=== PATIENT | female | born 1975 | race Hispanic/Latino ===

== ENCOUNTER 2017-10-01 21:51 | Inpatient (IN) | payer BC ==
[2017-10-01 21:52] VITALS: BMI 21.4
[2017-10-01] MEDS ORDERED: Sodium Chloride 0.9% 1,000 ML IV STA (22:21)
--- NOTE | 2017-10-01 22:34 | ED PDOC ---
HPI: Psych/Substance Abuse Time Seen by Provider: 10/01/17 22:01 Chief Complaint (Nursing): Substance Abuse Chief Complaint (Provider): Substance Abuse History Per: Patient, EMS Onset/Duration Of Symptoms: Mins Current Symptoms Are (Timing): Still Present Additional Complaint(s): 41 year old female, with a past medical history of depression and PTSD presents to the ED via EMS after taking 40 800mg tablets of Seroquel and 0.5mg of Xanax at 21:00 today in suicide attempt. Patient is on lithium but denies ingesting lithium today. PMD: none Past Medical History Reviewed: Historical Data, Nursing Documentation, Vital Signs Vital Signs: Last Vital Signs Temp 97.6 F 10/01/17 21:57 Pulse 123 H 10/01/17 22:09 Resp 17 10/01/17 22:09 BP 124/74 10/01/17 22:09 Pulse Ox 100 10/01/17 22:09 - Medical History PMH: Anxiety (OCD), Depression, Hypothyroidism, Post Traumatic Stress Disorder - Surgical History Other surgeries: tubal ligation - Family History Family History: States: Unknown Family Hx - Social History Current smoker - smoking cessation education provided: No Alcohol: None Drugs: Denies - Immunization History Hx Tetanus Toxoid Vaccination: No (not sure of last tetanus) - Home Medications Home Medications: Ambulatory Orders Medication Instructions Recorded Alprazolam [Xanax] 0.5 mg PO HS 10/02/17 Acetaminophen [Tylenol 325mg tab] 650 mg PO Q6 PRN tab 10/04/17 DiphenhydrAMINE [Benadryl] 50 mg IM Q8 PRN vial 10/04/17 DiphenhydrAMINE [Benadryl] 50 mg PO Q8 PRN cap 10/04/17 Famotidine [Pepcid] 20 mg PO BID tab 10/04/17 Haloperidol Lactate [Haldol] 2 mg IM Q8 PRN vial 10/04/17 Haloperidol [Haldol] 2 mg PO Q8 PRN tab 10/04/17 LORazepam [Ativan] 1 mg PO Q8 PRN tab 10/04/17 LORazepam [Ativan] 2 mg IM Q8 PRN vial 10/04/17 - Allergies Allergies/Adverse Reactions: Allergies Allergy/AdvReac Type Severity Reaction Status Date / Time No Known Allergies Allergy Verified 11/16/14 12:55 Review of Systems ROS Statement: Except As Marked, All Systems Reviewed And Found Negative Psych: Positive for: Suicidal ideation (suicidal attempt) Physical Exam - Reviewed Nursing Documentation Reviewed: Yes Vital Signs Reviewed: Yes - Physical Exam Appears: Positive for: Non-toxic, No Acute Distress (sleep and responsive to verbal stimuli) Head Exam: Positive for: ATRAUMATIC, NORMOCEPHALIC Skin: Positive for: Normal Color, Warm, Dry Eye Exam: Positive for: Other (constricted but not pinpoint) Neck: Positive for: Normal, Painless ROM Cardiovascular/Chest: Positive for: Regular Rate, Rhythm, Tachycardia Respiratory: Positive for: Normal Breath Sounds. Negative for: Wheezing, Respiratory Distress Gastrointestinal/Abdominal: Positive for: Normal Exam, Soft. Negative for: Tenderness Extremity: Positive for: Normal ROM - Laboratory Results Result Diagrams: 10/03/17 05:25 10/03/17 05:25 - ECG Interpretation Of ECG: ST @ 126, nonspecific ST and T abnormality. O2 Sat by Pulse Oximetry: 100 (RA) Pulse Ox Interpretation: Normal - Critical Care Total Time (In Min): 45 Medical Decision Making Medical Decision Making: Initial Impression: OD, suicide attempt Initial Plan: --ECG --Acetaminophen stat --Alcohol serum stat --Beta HCG --CMP --Drug screen --[place] stat --Magnesium stat --Salicylate stat --ED urine --ED urine dipstick --CBC --Chest X-ray --Glucose --Sodium chloride 1000mL IV --1:1 observation --Urinalysis 00:20 Called Poison Control back, spoke with ED. Recommends KDur for slightly low K, keep Mg>2 other replenish, repeat EKG in another 2 hours, repeat [place] 4-6 hours from first level, supportive care. Will call back later tonight. Scribe Attestation: Documented by Pierce Abdi acting as a scribe for Negra Parks MD. Provider Scribe Attestation: All medical record entries made by the Scribe were at my direction and personally dictated by me. I have reviewed the chart and agree that the record accurately reflects my personal performance of the history, physical exam, medical decision making, and the department course for this patient. I have also personally directed, reviewed, and agree with the discharge instructions and disposition. Disposition - Clinical Impression Clinical Impression: Antipsychotic overdose, Depression, PTSD (post-traumatic stress disorder) - Patient ED Disposition Is Patient to be Admitted: Yes - Disposition Disposition Time: 23:35 Condition: STABLE - Pt Status Changed To: Hospital Disposition Of: Inpatient - Admit Certification Admit to Inpatient:: After my assessment, the patient will require hospitalization for at least two midnights. This is because of the severity of symptoms shown, intensity of services needed, and/or the medical risk in this patient being treated as an outpatient. - POA Present On Arrival: None
[2017-10-01 22:47] LABS: BASO % 0.5 % (0.0-2.0); EOS # 0.4 K/uL (0.0-0.7); EOS % 4.3 % (0.0-4.0); LYMPH # 2.2 K/uL (1.0-4.3); LYMPH % 26.7 % (20.0-40.0); MEAN CELL VOLUME 96.2 fl (81.0-99.0); MEAN CORPUSCULAR HEMOGLOBIN 32.7 pg (27.0-31.0); MEAN PLATELET VOLUME 7.7 fl (7.2-11.7); MONO # 0.6 K/uL (0.0-0.8); MONO % 6.7 % (0.0-10.0); NEUT # 5.1 K/uL (1.8-7.0); NEUT % 61.8 % (50.0-75.0); RBC 3.97 Mil/uL (3.80-5.20); RED CELL DISTRIBUTION WIDTH 12.5 % (11.5-14.5); WHITE BLOOD COUNT 8.3 K/uL (4.8-10.8)
[2017-10-01 23:12] LABS: ALB/GLOB RATIO 1.3 (1.0-2.1); ALBUMIN 4.5 g/dL (3.5-5.0); ALT/SGPT 18 U/L (9-52); AST/SGOT 23 U/L (14-36); BLOOD UREA NITROGEN 13 mg/dl (7-17); CALCIUM 9.8 mg/dL (8.4-10.2); GFR AFRICAN-AMERICAN > 60; GFR NON-AFRICAN AMERICAN > 60
[2017-10-02] MEDS: Sodium Chloride 0.9% 1,000 ML IV SCH ×3 (00:11→20:36)
[2017-10-02 00:13] LABS: ACETAMINOPHEN < 10.0 ug/ml (10.0-30.0); SALICYLATE < 1.0 mg/dl
[2017-10-02] MEDS ORDERED: Sodium Chloride 0.9% 1,000 ML IV STA (00:15)
[2017-10-02 06:04] LABS: BASO % 0.6 % (0.0-2.0); EOS # 0.3 K/uL (0.0-0.7); EOS % 4.5 % (0.0-4.0); HEMOGLOBIN 10.7 g/dL (12.0-16.0); LYMPH # 2.1 K/uL (1.0-4.3); LYMPH % 29.6 % (20.0-40.0); MEAN CELL VOLUME 96.6 fl (81.0-99.0); MEAN CORPUSCULAR HGB CONC 34.1 g/dL (33.0-37.0); MEAN PLATELET VOLUME 7.9 fl (7.2-11.7); MONO # 0.5 K/uL (0.0-0.8); MONO % 7.5 % (0.0-10.0); NEUT # 4.1 K/uL (1.8-7.0); NEUT % 57.8 % (50.0-75.0); RBC 3.24 Mil/uL (3.80-5.20); RED CELL DISTRIBUTION WIDTH 12.4 % (11.5-14.5); WHITE BLOOD COUNT 7.1 K/uL (4.8-10.8)
[2017-10-02 07:10] LABS: ALB/GLOB RATIO 1.1 (1.0-2.1); ALBUMIN 3.2 g/dL (3.5-5.0); ALT/SGPT 15 U/L (9-52); AST/SGOT 19 U/L (14-36); BLOOD UREA NITROGEN 10 mg/dl (7-17); CALCIUM 8.4 mg/dL (8.4-10.2); GFR AFRICAN-AMERICAN > 60; GFR NON-AFRICAN AMERICAN > 60
--- NOTE | 2017-10-02 07:45 | CP.PCM.HP ---
History of Present Illness - History of Present Illness History of Present Illness: pt admitted for seroquel od, not willing to talk at this time responsive to stimuli at this time but unwilling to speak no fcnvd ekg and bw noted pending psych consult 1:1 at bedside Present on Admission - Present on Admission Any Indicators Present on Admission: No Review of Systems - Psychiatric Psychiatric: As Per HPI, Suicidal Ideation Past Patient History - Past Medical History & Family History Past Medical History?: Yes - Past Social History Smoking Status: Never Smoked - CARDIAC Hx Cardiac Disorders: No - PULMONARY Hx Respiratory Disorders: No - NEUROLOGICAL Hx Neurological Disorder: No - HEENT Hx HEENT Problems: No - RENAL Hx Chronic Kidney Disease: No - ENDOCRINE/METABOLIC Hx Endocrine Disorders: Yes Hx Hypothyroidism: Yes - HEMATOLOGICAL/ONCOLOGICAL Hx Blood Disorders: No - INTEGUMENTARY Hx Dermatological Problems: No - MUSCULOSKELETAL/RHEUMATOLOGICAL Hx Musculoskeletal Disorders: No Hx Falls: No - GASTROINTESTINAL Hx Gastrointestinal Disorders: No - GENITOURINARY/GYNECOLOGICAL Hx Genitourinary Disorders: No - PSYCHIATRIC Hx Psychophysiologic Disorder: Yes Hx Anxiety: Yes Hx Depression: Yes Hx Post Traumatic Stress Disorder: Yes Hx Substance Use: No Other/Comment: OCD, Suicide attempt 8 yrs ago - SURGICAL HISTORY Hx Surgeries: Yes Hx Hysterectomy: Yes Hx Tubal Ligation: Yes - ANESTHESIA Hx Anesthesia: Yes Hx Anesthesia Reactions: No Hx Malignant Hyperthermia: No Meds Allergies/Adverse Reactions: Allergies Allergy/AdvReac Type Severity Reaction Status Date / Time No Known Allergies Allergy Verified 11/16/14 12:55 Physical Exam - Constitutional Appears: Well, Non-toxic, No Acute Distress - Head Exam Head Exam: ATRAUMATIC, NORMAL INSPECTION, NORMOCEPHALIC - Eye Exam Eye Exam: EOMI, Normal appearance, PERRL Pupil Exam: NORMAL ACCOMODATION, PERRL - ENT Exam ENT Exam: Mucous Membranes Moist, Normal Exam - Neck Exam Neck exam: Positive for: Normal Inspection - Respiratory Exam Respiratory Exam: Clear to Auscultation Bilateral, NORMAL BREATHING PATTERN - Cardiovascular Exam Cardiovascular Exam: REGULAR RHYTHM, RRR, +S1, +S2 - GI/Abdominal Exam GI & Abdominal Exam: Normal Bowel Sounds, Soft. absent: Tenderness - Extremities Exam Extremities exam: Positive for: full ROM, normal capillary refill, normal inspection, pedal pulses present - Back Exam Back exam: NORMAL INSPECTION - Neurological Exam Neurological exam: Alert, CN II-XII Intact, Normal Gait, Oriented x3, Reflexes Normal - Psychiatric Exam Psychiatric exam: Normal Affect, Normal Mood - Skin Skin Exam: Dry, Intact, Normal Color, Warm Results - Vital Signs Recent Vital Signs: Last Vital Signs Temp 97.5 F L 10/02/17 06:29 Pulse 125 H 10/02/17 06:29 Resp 18 10/02/17 06:29 BP 110/72 10/02/17 06:29 Pulse Ox 99 10/02/17 06:29 - Labs Result Diagrams: 10/02/17 05:45 10/02/17 05:45 Labs: Laboratory Results - last 24 hr 10/01/17 10/01/17 10/01/17 22:35 22:38 22:38 WBC RBC Hgb Hct MCV MCH MCHC RDW Plt Count MPV Neut % (Auto) Lymph % (Auto) [place] % (Auto) Eos % (Auto) Baso % (Auto) Neut # (Auto) Lymph # (Auto) [place] # (Auto) Eos # (Auto) Baso # (Auto) Sodium 141 Potassium 3.5 L Chloride 107 Carbon Dioxide 23 Anion Gap 15 BUN 13 Creatinine 0.9 Est GFR ( Amer) > 60 Est GFR (Non-Af Amer) > 60 POC Glucose (mg/dL) 117 H Random Glucose 125 H Calcium 9.8 Magnesium Total Bilirubin 0.3 AST 23 ALT 18 Alkaline Phosphatase 102 Total Protein 7.9 Albumin 4.5 Globulin 3.5 Albumin/Globulin Ratio 1.3 Beta HCG, Quant Salicylates < 1.0 Acetaminophen < 10.0 L [place] 0.5 L Alcohol, Quantitative < 10 10/01/17 10/01/17 10/02/17 22:38 22:38 02:45 WBC 8.3 RBC 3.97 Hgb 13.0 Hct 38.2 MCV 96.2 MCH 32.7 H MCHC 34.0 RDW 12.5 Plt Count 291 MPV 7.7 Neut % (Auto) 61.8 Lymph % (Auto) 26.7 [place] % (Auto) 6.7 Eos % (Auto) 4.3 H Baso % (Auto) 0.5 Neut # (Auto) 5.1 Lymph # (Auto) 2.2 [place] # (Auto) 0.6 Eos # (Auto) 0.4 Baso # (Auto) 0.0 Sodium Potassium Chloride Carbon Dioxide Anion Gap BUN Creatinine Est GFR ( Amer) Est GFR (Non-Af Amer) POC Glucose (mg/dL) Random Glucose Calcium Magnesium 2.4 H Total Bilirubin AST ALT Alkaline Phosphatase Total Protein Albumin Globulin Albumin/Globulin Ratio Beta HCG, Quant < 2.39 Salicylates Acetaminophen [place] 0.4 L Alcohol, Quantitative 10/02/17 10/02/17 05:45 05:45 WBC 7.1 RBC 3.24 L Hgb 10.7 L D Hct 31.3 L MCV 96.6 MCH 33.0 H MCHC 34.1 RDW 12.4 Plt Count 249 MPV 7.9 Neut % (Auto) 57.8 Lymph % (Auto) 29.6 [place] % (Auto) 7.5 Eos % (Auto) 4.5 H Baso % (Auto) 0.6 Neut # (Auto) 4.1 Lymph # (Auto) 2.1 [place] # (Auto) 0.5 Eos # (Auto) 0.3 Baso # (Auto) 0.0 Sodium 145 Potassium 3.7 Chloride 114 H Carbon Dioxide 21 L Anion Gap 14 BUN 10 Creatinine 0.8 Est GFR ( Amer) > 60 Est GFR (Non-Af Amer) > 60 POC Glucose (mg/dL) Random Glucose 96 Calcium 8.4 Magnesium 2.1 Total Bilirubin 0.4 AST 19 ALT 15 Alkaline Phosphatase 72 Total Protein 6.1 L Albumin 3.2 L D Globulin 2.9 Albumin/Globulin Ratio 1.1 Beta HCG, Quant Salicylates Acetaminophen [place] Alcohol, Quantitative Assessment & Plan (1) DVT prophylaxis Assessment and Plan: scd and ae hose Status: Acute (2) Antipsychotic overdose Assessment and Plan: 1:1 psych monitor ekg poison control involved in case bw noted. Status: Acute (3) Depression Assessment and Plan: 1:1 psych monitor ekg poison control involved in case bw noted. Status: Acute Decision To Admit - Pt Status Changed To: Hospital Disposition Of: Inpatient - Admit Certification Admit to Inpatient:: After my assessment, the patient will require hospitalization for at least two midnights. This is because of the severity of symptoms shown, intensity of services needed, and/or the medical risk in this patient being treated as an outpatient. - . Bed Request Type: Telemetry Admitting Physician: Gricelda Valentin
--- NOTE | 2017-10-02 08:35 | CP.PCM.CON ---
History of Present Illness - History of Present Illness History of Present Illness: Psychiatry consult note Patient unwilling to talk w/ tech writer, although she is clearly awake, she keeps her eyes closed and just makes a humming/buzzing sound. She will not engage in any conversation. As per chart: 41 year old female, with a past medical history of depression and PTSD presents to the ED via EMS after taking 40 800mg tablets of Seroquel and 0.5mg of Xanax at 21:00 today in suicide attempt. Patient is on lithium but denies ingesting lithium. Patient is an acute danger to self and should be screened for involuntary psychiatric admission. Continue 1:1 for safety Past Patient History - Past Medical History & Family History Past Medical History?: Yes - Past Social History Smoking Status: Never Smoked - CARDIAC Hx Cardiac Disorders: No - PULMONARY Hx Respiratory Disorders: No - NEUROLOGICAL Hx Neurological Disorder: No - HEENT Hx HEENT Problems: No - RENAL Hx Chronic Kidney Disease: No - ENDOCRINE/METABOLIC Hx Endocrine Disorders: Yes Hx Hypothyroidism: Yes - HEMATOLOGICAL/ONCOLOGICAL Hx Blood Disorders: No - INTEGUMENTARY Hx Dermatological Problems: No - MUSCULOSKELETAL/RHEUMATOLOGICAL Hx Musculoskeletal Disorders: No Hx Falls: No - GASTROINTESTINAL Hx Gastrointestinal Disorders: No - GENITOURINARY/GYNECOLOGICAL Hx Genitourinary Disorders: No - PSYCHIATRIC Hx Psychophysiologic Disorder: Yes Hx Anxiety: Yes Hx Depression: Yes Hx Post Traumatic Stress Disorder: Yes Hx Substance Use: No Other/Comment: OCD, Suicide attempt 8 yrs ago - SURGICAL HISTORY Hx Surgeries: Yes Hx Hysterectomy: Yes Hx Tubal Ligation: Yes - ANESTHESIA Hx Anesthesia: Yes Hx Anesthesia Reactions: No Hx Malignant Hyperthermia: No Meds Allergies/Adverse Reactions: Allergies Allergy/AdvReac Type Severity Reaction Status Date / Time No Known Allergies Allergy Verified 11/16/14 12:55 - Medications Medications: Current Medications Sodium Chloride (Sodium Chloride 0.9%) 1,000 mls @ 100 mls/hr IV .Q10H VERONICA Stop: 10/02/17 23:36 Last Admin: 10/02/17 00:11 Dose: 100 mls/hr Results - Vital Signs Recent Vital Signs: Last Vital Signs Temp 97.5 F L 10/02/17 08:13 Pulse 115 H 10/02/17 08:13 Resp 20 10/02/17 08:13 BP 122/78 10/02/17 08:13 Pulse Ox 100 10/02/17 08:13 - Labs Result Diagrams: 10/02/17 05:45 10/02/17 05:45 Labs: Laboratory Results - last 24 hr 10/01/17 10/01/17 10/01/17 22:35 22:38 22:38 WBC RBC Hgb Hct MCV MCH MCHC RDW Plt Count MPV Neut % (Auto) Lymph % (Auto) [place] % (Auto) Eos % (Auto) Baso % (Auto) Neut # (Auto) Lymph # (Auto) [place] # (Auto) Eos # (Auto) Baso # (Auto) Sodium 141 Potassium 3.5 L Chloride 107 Carbon Dioxide 23 Anion Gap 15 BUN 13 Creatinine 0.9 Est GFR ( Amer) > 60 Est GFR (Non-Af Amer) > 60 POC Glucose (mg/dL) 117 H Random Glucose 125 H Calcium 9.8 Magnesium Total Bilirubin 0.3 AST 23 ALT 18 Alkaline Phosphatase 102 Total Protein 7.9 Albumin 4.5 Globulin 3.5 Albumin/Globulin Ratio 1.3 Beta HCG, Quant Salicylates < 1.0 Acetaminophen < 10.0 L [place] 0.5 L Alcohol, Quantitative < 10 10/01/17 10/01/17 10/02/17 22:38 22:38 02:45 WBC 8.3 RBC 3.97 Hgb 13.0 Hct 38.2 MCV 96.2 MCH 32.7 H MCHC 34.0 RDW 12.5 Plt Count 291 MPV 7.7 Neut % (Auto) 61.8 Lymph % (Auto) 26.7 [place] % (Auto) 6.7 Eos % (Auto) 4.3 H Baso % (Auto) 0.5 Neut # (Auto) 5.1 Lymph # (Auto) 2.2 [place] # (Auto) 0.6 Eos # (Auto) 0.4 Baso # (Auto) 0.0 Sodium Potassium Chloride Carbon Dioxide Anion Gap BUN Creatinine Est GFR ( Amer) Est GFR (Non-Af Amer) POC Glucose (mg/dL) Random Glucose Calcium Magnesium 2.4 H Total Bilirubin AST ALT Alkaline Phosphatase Total Protein Albumin Globulin Albumin/Globulin Ratio Beta HCG, Quant < 2.39 Salicylates Acetaminophen [place] 0.4 L Alcohol, Quantitative 10/02/17 10/02/17 05:45 05:45 WBC 7.1 RBC 3.24 L Hgb 10.7 L D Hct 31.3 L MCV 96.6 MCH 33.0 H MCHC 34.1 RDW 12.4 Plt Count 249 MPV 7.9 Neut % (Auto) 57.8 Lymph % (Auto) 29.6 [place] % (Auto) 7.5 Eos % (Auto) 4.5 H Baso % (Auto) 0.6 Neut # (Auto) 4.1 Lymph # (Auto) 2.1 [place] # (Auto) 0.5 Eos # (Auto) 0.3 Baso # (Auto) 0.0 Sodium 145 Potassium 3.7 Chloride 114 H Carbon Dioxide 21 L Anion Gap 14 BUN 10 Creatinine 0.8 Est GFR ( Amer) > 60 Est GFR (Non-Af Amer) > 60 POC Glucose (mg/dL) Random Glucose 96 Calcium 8.4 Magnesium 2.1 Total Bilirubin 0.4 AST 19 ALT 15 Alkaline Phosphatase 72 Total Protein 6.1 L Albumin 3.2 L D Globulin 2.9 Albumin/Globulin Ratio 1.1 Beta HCG, Quant Salicylates Acetaminophen [place] Alcohol, Quantitative
--- NOTE | 2017-10-02 09:25 | RAD ---
Date of service: 10/02/2017 PROCEDURE: CHEST RADIOGRAPH, 1 VIEW HISTORY: OD COMPARISON: None available. FINDINGS: LUNGS: No acute infiltrates. There is a small approximately 6.4 mm nodular density seen in the right mid to lower lung zone that overlies the right posterior 7th rib which could represent calcified granuloma. Recommend followup nonemergent CT scan of the chest to confirm and exclude the possibility of a neoplasm which would be slightly unusual in this age group though not excluded PLEURA: No pneumothorax or pleural fluid seen. CARDIOVASCULAR: Normal. OSSEOUS STRUCTURES: No significant abnormalities. VISUALIZED UPPER ABDOMEN: Normal. OTHER FINDINGS: None. IMPRESSION: No acute infiltrates. There is a small approximately 6.4 mm nodular density seen in the right mid to lower lung zone that overlies the right posterior 7th rib which could represent calcified granuloma. Recommend followup nonemergent CT scan of the chest to confirm and exclude the possibility of a neoplasm which would be slightly unusual in this age group though not excluded Note that this report was placed in PA review folder for followup
[2017-10-02] MEDS ORDERED: DiphenhydrAMINE 50 mg/ml Inj IM PRN (09:30)
--- NOTE | 2017-10-02 16:33 | CARD ---
APPROVED REPORT Date of service: 10/01/2017 EKG Measurement Heart [id number] <Conclusion> Sinus tachycardia Nonspecific ST and T wave abnormality Abnormal ECG
[2017-10-03 05:46] LABS: BASO % 0.4 % (0.0-2.0); EOS # 0.2 K/uL (0.0-0.7); EOS % 2.5 % (0.0-4.0); HEMOGLOBIN 9.8 g/dL (12.0-16.0); LYMPH # 1.4 K/uL (1.0-4.3); LYMPH % 16.7 % (20.0-40.0); MEAN CELL VOLUME 97.2 fl (81.0-99.0); MEAN CORPUSCULAR HEMOGLOBIN 33.3 pg (27.0-31.0); MEAN CORPUSCULAR HGB CONC 34.3 g/dL (33.0-37.0); MONO # 0.6 K/uL (0.0-0.8); MONO % 7.4 % (0.0-10.0); NEUT # 6.3 K/uL (1.8-7.0); NRBC % 0.1 % (0.0-0.0); RBC 2.95 Mil/uL (3.80-5.20); RED CELL DISTRIBUTION WIDTH 12.6 % (11.5-14.5); WHITE BLOOD COUNT 8.6 K/uL (4.8-10.8)
[2017-10-03 06:08] LABS: ALB/GLOB RATIO 1.1 (1.0-2.1); ALBUMIN 3.1 g/dL (3.5-5.0); ALT/SGPT 21 U/L (9-52); AST/SGOT 20 U/L (14-36); BLOOD UREA NITROGEN 6 mg/dl (7-17); CALCIUM 8.3 mg/dL (8.4-10.2); GFR AFRICAN-AMERICAN > 60; GFR NON-AFRICAN AMERICAN > 60
--- NOTE | 2017-10-03 08:23 | CP.PCM.PN ---
Subjective - Date & Time of Evaluation Date of Evaluation: 10/03/17 Time of Evaluation: 08:21 - Subjective Subjective: pt more awake/alert and conversive today. denies complaints. no f/c, n/v/d. 1:1 remains at bedside. had some periods of aggressive/manipulating behavior pending [facility] [place] Objective - Vital Signs/Intake and Output Vital Signs (last 24 hours): Temp Pulse Resp BP Pulse Ox 97.7 F 93 H 20 114/74 100 10/03/17 07:59 10/03/17 07:59 10/03/17 07:59 10/03/17 07:59 10/03/17 07:59 - Medications Medications: Current Medications Diphenhydramine HCl (Benadryl) 50 mg IM Q8 PRN PRN Reason: Agitation Diphenhydramine HCl (Benadryl) 50 mg PO Q8 PRN PRN Reason: Agitation/Anxiety/Insomnia Haloperidol (Haldol) 2 mg PO Q8 PRN PRN Reason: Agitation Haloperidol Lactate (Haldol) 2 mg IM Q8 PRN PRN Reason: Agitation Lorazepam (Ativan) 2 mg IM Q8 PRN PRN Reason: Agitation Lorazepam (Ativan) 1 mg PO Q8 PRN PRN Reason: Agitation/Anxiety - Labs Labs: 10/03/17 05:25 10/03/17 05:25 - Constitutional Appears: Well, Non-toxic, No Acute Distress - Head Exam Head Exam: ATRAUMATIC, NORMAL INSPECTION, NORMOCEPHALIC - Eye Exam Eye Exam: EOMI, Normal appearance, PERRL Pupil Exam: NORMAL ACCOMODATION, PERRL - ENT Exam ENT Exam: Mucous Membranes Moist, Normal Exam - Neck Exam Neck Exam: Full ROM, Normal Inspection. absent: Lymphadenopathy - Respiratory Exam Respiratory Exam: Clear to Ausculation Bilateral, NORMAL BREATHING PATTERN - Cardiovascular Exam Cardiovascular Exam: REGULAR RHYTHM, RRR, +S1, +S2. absent: Murmur - GI/Abdominal Exam GI & Abdominal Exam: Soft, Normal Bowel Sounds. absent: Tenderness - Extremities Exam Extremities Exam: Full ROM, Normal Capillary Refill, Normal Inspection. absent : Joint Swelling, Pedal Edema - Back Exam Back Exam: NORMAL INSPECTION - Neurological Exam Neurological Exam: Alert, Awake, CN II-XII Intact, Normal Gait, Oriented x3 - Psychiatric Exam Psychiatric exam: Normal Affect, Normal Mood - Skin Skin Exam: Dry, Intact, Normal Color, Warm Assessment and Plan (1) DVT prophylaxis Status: Acute (2) Antipsychotic overdose Status: Acute (3) Depression Status: Acute - Assessment and Plan (Free Text) Assessment: (1) DVT prophylaxis Assessment and Plan: scd and ae hose Status: Acute (2) Antipsychotic overdose Assessment and Plan: 1:1 psych monitor ekg poison control involved in case bw noted. ekg stable, tele stable [facility] [place] Status: Acute (3) Depression Assessment and Plan: 1:1 psych monitor ekg poison control involved in case bw noted. pending [facility] [place] Status: Acute
--- NOTE | 2017-10-03 11:52 | CP.PCM.CON ---
History of Present Illness - History of Present Illness History of Present Illness: Psychiatry consult follow-up note CC: "I overdosed on pills." HPI: 41 yo female w/ h/o MDD, presents s/p overdose on Seroquel. She admits that it was a suicide attempt and reports worsening depression w/ sleep and appetite disturbances. NO AH/VH/paranoia/delusions. She is not agreeable to voluntary psychiatric admission at this time. PPHx: Denies past suicide attempts. 3 previous psychiatric admissions, last in 2009. Most recently treated w/ Seroquel 300 mg PO BID and [place] 300 mg. ALL: NKDA FHx: Denies family history of mental illness SHx: Lives w/ and 3 cats; on SSD; denies drugs/etoh/cig MSE: A + O x 3, calm, cooperative, good eye contact, speech normal, mood- "fine ", affect- constricted, thought process- linear/coherent, thought content- no delusions, no AH/VH/paranoia/delusions, denies SI/HI; poor I/J Impression: 41 yo female w/ h/o MDD presents s/p suicide attempt, is not agreeable to voluntary psychiatric admission at this time. -Screen for involuntary psychiatric admission Past Patient History - Past Medical History & Family History Past Medical History?: Yes - Past Social History Smoking Status: Never Smoked - CARDIAC Hx Cardiac Disorders: No - PULMONARY Hx Respiratory Disorders: No - NEUROLOGICAL Hx Neurological Disorder: No - HEENT Hx HEENT Problems: No - RENAL Hx Chronic Kidney Disease: No - ENDOCRINE/METABOLIC Hx Endocrine Disorders: Yes Hx Hypothyroidism: Yes - HEMATOLOGICAL/ONCOLOGICAL Hx Blood Disorders: No - INTEGUMENTARY Hx Dermatological Problems: No - MUSCULOSKELETAL/RHEUMATOLOGICAL Hx Musculoskeletal Disorders: No Hx Falls: No - GASTROINTESTINAL Hx Gastrointestinal Disorders: No - GENITOURINARY/GYNECOLOGICAL Hx Genitourinary Disorders: No - PSYCHIATRIC Hx Psychophysiologic Disorder: Yes Hx Anxiety: Yes Hx Depression: Yes Hx Post Traumatic Stress Disorder: Yes Hx Substance Use: No Other/Comment: OCD, Suicide attempt 8 yrs ago - SURGICAL HISTORY Hx Surgeries: Yes Hx Hysterectomy: Yes Hx Tubal Ligation: Yes - ANESTHESIA Hx Anesthesia: Yes Hx Anesthesia Reactions: No Hx Malignant Hyperthermia: No Meds Allergies/Adverse Reactions: Allergies Allergy/AdvReac Type Severity Reaction Status Date / Time No Known Allergies Allergy Verified 11/16/14 12:55 - Medications Medications: Current Medications Diphenhydramine HCl (Benadryl) 50 mg IM Q8 PRN PRN Reason: Agitation Diphenhydramine HCl (Benadryl) 50 mg PO Q8 PRN PRN Reason: Agitation/Anxiety/Insomnia Haloperidol (Haldol) 2 mg PO Q8 PRN PRN Reason: Agitation Haloperidol Lactate (Haldol) 2 mg IM Q8 PRN PRN Reason: Agitation Lorazepam (Ativan) 2 mg IM Q8 PRN PRN Reason: Agitation Lorazepam (Ativan) 1 mg PO Q8 PRN PRN Reason: Agitation/Anxiety Results - Vital Signs Recent Vital Signs: Last Vital Signs Temp 97.7 F 10/03/17 07:59 Pulse 93 H 10/03/17 07:59 Resp 20 10/03/17 07:59 BP 114/74 10/03/17 07:59 Pulse Ox 100 10/03/17 07:59 - Labs Result Diagrams: 10/03/17 05:25 10/03/17 05:25 Labs: Laboratory Results - last 24 hr 10/03/17 10/03/17 05:25 05:25 WBC 8.6 RBC 2.95 L Hgb 9.8 L Hct 28.7 L MCV 97.2 MCH 33.3 H MCHC 34.3 RDW 12.6 Plt Count 216 MPV 8.0 Neut % (Auto) 73.0 Lymph % (Auto) 16.7 L [place] % (Auto) 7.4 Eos % (Auto) 2.5 Baso % (Auto) 0.4 Neut # (Auto) 6.3 Lymph # (Auto) 1.4 [place] # (Auto) 0.6 Eos # (Auto) 0.2 Baso # (Auto) 0.0 Sodium 141 Potassium 4.0 Chloride 112 H Carbon Dioxide 21 L Anion Gap 12 BUN 6 L Creatinine 0.8 Est GFR ( Amer) > 60 Est GFR (Non-Af Amer) > 60 Random Glucose 85 Calcium 8.3 L Total Bilirubin 0.6 AST 20 ALT 21 Alkaline Phosphatase 76 Total Protein 6.0 L Albumin 3.1 L Globulin 2.9 Albumin/Globulin Ratio 1.1
[2017-10-03 14:26] LABS: SQUAMOUS EPITHIAL 1 /hpf (0-5); URINE BILIRUBIN NEGATIVE (NEGATIVE); URINE BLOOD NEGATIVE (NEGATIVE); URINE CLARITY CLEAR (Clear); URINE COLOR STRAW (YELLOW); URINE GLUCOSE (UA) NEG (Normal); URINE LEUKOCYTE ESTERASE NEG Leu/uL (Negative); URINE PROTEIN NEGATIVE (NEGATIVE); URINE UROBILINOGEN 0.2-1.0 mg/dL (0.2-1.0)
--- NOTE | 2017-10-04 08:43 | CP.PCM.PN ---
Subjective - Date & Time of Evaluation Date of Evaluation: 10/04/17 Time of Evaluation: 08:43 - Subjective Subjective: pt calm and cooperative. no f/c, n/v/d. c/o dyspepsia. 1:1 at bedside. pt states now willing to sign to 3np. Objective - Vital Signs/Intake and Output Vital Signs (last 24 hours): Temp Pulse Resp BP Pulse Ox 98.1 F 77 20 101/65 95 10/04/17 08:00 10/04/17 08:00 10/04/17 08:00 10/04/17 08:00 10/04/17 08:00 - Medications Medications: Current Medications Acetaminophen (Tylenol 325mg Tab) 650 mg PO Q6 PRN PRN Reason: Headache Last Admin: 10/03/17 15:21 Dose: 650 mg Diphenhydramine HCl (Benadryl) 50 mg IM Q8 PRN PRN Reason: Agitation Diphenhydramine HCl (Benadryl) 50 mg PO Q8 PRN PRN Reason: Agitation/Anxiety/Insomnia Haloperidol (Haldol) 2 mg PO Q8 PRN PRN Reason: Agitation Haloperidol Lactate (Haldol) 2 mg IM Q8 PRN PRN Reason: Agitation Lorazepam (Ativan) 2 mg IM Q8 PRN PRN Reason: Agitation Lorazepam (Ativan) 1 mg PO Q8 PRN PRN Reason: Agitation/Anxiety - Labs Labs: 10/03/17 05:25 10/03/17 05:25 - Constitutional Appears: Well, Non-toxic, No Acute Distress - Head Exam Head Exam: ATRAUMATIC, NORMAL INSPECTION, NORMOCEPHALIC - Eye Exam Eye Exam: EOMI, Normal appearance, PERRL Pupil Exam: NORMAL ACCOMODATION, PERRL - ENT Exam ENT Exam: Mucous Membranes Moist, Normal Exam - Neck Exam Neck Exam: Full ROM, Normal Inspection. absent: Lymphadenopathy - Respiratory Exam Respiratory Exam: Clear to Ausculation Bilateral, NORMAL BREATHING PATTERN - Cardiovascular Exam Cardiovascular Exam: REGULAR RHYTHM, RRR, +S1, +S2. absent: Murmur - GI/Abdominal Exam GI & Abdominal Exam: Soft, Normal Bowel Sounds. absent: Tenderness - Extremities Exam Extremities Exam: Full ROM, Normal Capillary Refill, Normal Inspection. absent : Joint Swelling, Pedal Edema - Back Exam Back Exam: NORMAL INSPECTION - Neurological Exam Neurological Exam: Alert, Awake, CN II-XII Intact, Normal Gait, Oriented x3 - Psychiatric Exam Psychiatric exam: Normal Affect, Normal Mood - Skin Skin Exam: Dry, Intact, Normal Color, Warm Assessment and Plan (1) DVT prophylaxis Status: Acute (2) Antipsychotic overdose Status: Acute (3) Depression Status: Acute - Assessment and Plan (Free Text) Assessment: (1) DVT prophylaxis Assessment and Plan: scd and ae hose ambulation Status: Acute (2) Antipsychotic overdose Assessment and Plan: 1:1 psych monitor ekg-stable poison control involved in case bw noted. ekg stable, tele stable [facility] [place] willing to sign into 3np medically cleared for psych admission Status: Acute (3) Depression Assessment and Plan: 1:1 psych monitor ekg poison control involved in case bw noted. pending [facility] [place] siging into 3np Status: Acute [id number]
--- NOTE | 2017-10-04 09:48 | CP.PCM.CON ---
History of Present Illness - History of Present Illness History of Present Illness: Psychiatry consult follow-up note CC: "I overdosed on pills." HPI: 41 yo female w/ h/o MDD, presents s/p overdose on Seroquel. She admits that it was a suicide attempt and reports worsening depression w/ sleep and appetite disturbances. NO AH/VH/paranoia/delusions. She is now willing to sign for voluntary psychiatric admission. PPHx: Denies past suicide attempts. 3 previous psychiatric admissions, last in 2009. Most recently treated w/ Seroquel 300 mg PO BID and [place] 300 mg. ALL: NKDA FHx: Denies family history of mental illness SHx: Lives w/ and 3 cats; on SSD; denies drugs/etoh/cig MSE: A + O x 3, calm, cooperative, good eye contact, speech normal, mood- "fine ", affect- constricted, thought process- linear/coherent, thought content- no delusions, no AH/VH/paranoia/delusions, denies SI/HI; poor I/J Impression: 41 yo female w/ h/o MDD presents s/p suicide attempt, is now agreeable to voluntary psychiatric admission. -Transfer to [facility] for psychiatric admission Past Patient History - Past Medical History & Family History Past Medical History?: Yes - Past Social History Smoking Status: Never Smoked - CARDIAC Hx Cardiac Disorders: No - PULMONARY Hx Respiratory Disorders: No - NEUROLOGICAL Hx Neurological Disorder: No - HEENT Hx HEENT Problems: No - RENAL Hx Chronic Kidney Disease: No - ENDOCRINE/METABOLIC Hx Endocrine Disorders: Yes Hx Hypothyroidism: Yes - HEMATOLOGICAL/ONCOLOGICAL Hx Blood Disorders: No - INTEGUMENTARY Hx Dermatological Problems: No - MUSCULOSKELETAL/RHEUMATOLOGICAL Hx Musculoskeletal Disorders: No Hx Falls: No - GASTROINTESTINAL Hx Gastrointestinal Disorders: No - GENITOURINARY/GYNECOLOGICAL Hx Genitourinary Disorders: No - PSYCHIATRIC Hx Psychophysiologic Disorder: Yes Hx Anxiety: Yes Hx Depression: Yes Hx Post Traumatic Stress Disorder: Yes Hx Substance Use: No Other/Comment: OCD, Suicide attempt 8 yrs ago - SURGICAL HISTORY Hx Surgeries: Yes Hx Hysterectomy: Yes Hx Tubal Ligation: Yes - ANESTHESIA Hx Anesthesia: Yes Hx Anesthesia Reactions: No Hx Malignant Hyperthermia: No Meds Allergies/Adverse Reactions: Allergies Allergy/AdvReac Type Severity Reaction Status Date / Time No Known Allergies Allergy Verified 11/16/14 12:55 - Medications Medications: Current Medications Acetaminophen (Tylenol 325mg Tab) 650 mg PO Q6 PRN PRN Reason: Headache Last Admin: 10/03/17 15:21 Dose: 650 mg Diphenhydramine HCl (Benadryl) 50 mg IM Q8 PRN PRN Reason: Agitation Diphenhydramine HCl (Benadryl) 50 mg PO Q8 PRN PRN Reason: Agitation/Anxiety/Insomnia Famotidine (Pepcid) 20 mg PO BID VERONICA Haloperidol (Haldol) 2 mg PO Q8 PRN PRN Reason: Agitation Haloperidol Lactate (Haldol) 2 mg IM Q8 PRN PRN Reason: Agitation Lorazepam (Ativan) 2 mg IM Q8 PRN PRN Reason: Agitation Lorazepam (Ativan) 1 mg PO Q8 PRN PRN Reason: Agitation/Anxiety Results - Vital Signs Recent Vital Signs: Last Vital Signs Temp 98.1 F 10/04/17 08:00 Pulse 77 10/04/17 08:00 Resp 20 10/04/17 08:00 BP 101/65 10/04/17 08:00 Pulse Ox 95 10/04/17 08:00 - Labs Result Diagrams: 10/03/17 05:25 10/03/17 05:25 Labs: Laboratory Results - last 24 hr 10/03/17 14:20 Urine Color Straw Urine Clarity Clear Urine pH 5.0 Ur Specific [place] 1.005 Urine Protein Negative Urine Glucose (UA) Neg Urine Ketones Negative Urine Blood Negative Urine Nitrate Negative Urine Bilirubin Negative Urine Urobilinogen 0.2-1.0 Ur Leukocyte Esterase Neg Urine Microscopic WBC 1 Ur Squamous Epith Cells 1
[2017-10-04 16:20] VITALS: BP 113/78; PULSE 92; RESP 16; TEMP 98.1
[2017-10-05 10:56] VITALS: O2SAT 100
--- NOTE | 2017-10-06 09:34 | CP.PCM.DIS ---
Provider - Provider Date of Admission: 10/01/17 23:19 Attending physician: Gricelda Valentin MD Time Spent in preparation of Discharge (in minutes): 15 Diagnosis - Discharge Diagnosis (1) DVT prophylaxis Status: Acute (2) Antipsychotic overdose Status: Acute (3) Depression Status: Acute Hospital Course - Lab Results Lab Results: Most Recent Lab Values WBC 8.6 K/uL (4.8-10.8) 10/03/17 05:25 RBC 2.95 Mil/uL (3.80-5.20) L 10/03/17 05:25 Hgb 9.8 g/dL (12.0-16.0) L 10/03/17 05:25 Hct 28.7 % (34.0-47.0) L 10/03/17 05:25 MCV 97.2 fl (81.0-99.0) 10/03/17 05:25 MCH 33.3 pg (27.0-31.0) H 10/03/17 05:25 MCHC 34.3 g/dL (33.0-37.0) 10/03/17 05:25 RDW 12.6 % (11.5-14.5) 10/03/17 05:25 Plt Count 216 K/uL (130-400) 10/03/17 05:25 MPV 8.0 fl (7.2-11.7) 10/03/17 05:25 Neut % (Auto) 73.0 % (50.0-75.0) 10/03/17 05:25 Lymph % (Auto) 16.7 % (20.0-40.0) L 10/03/17 05:25 [place] % (Auto) 7.4 % (0.0-10.0) 10/03/17 05:25 Eos % (Auto) 2.5 % (0.0-4.0) 10/03/17 05:25 Baso % (Auto) 0.4 % (0.0-2.0) 10/03/17 05:25 Neut # (Auto) 6.3 K/uL (1.8-7.0) 10/03/17 05:25 Lymph # (Auto) 1.4 K/uL (1.0-4.3) 10/03/17 05:25 [place] # (Auto) 0.6 K/uL (0.0-0.8) 10/03/17 05:25 Eos # (Auto) 0.2 K/uL (0.0-0.7) 10/03/17 05:25 Baso # (Auto) 0.0 K/uL (0.0-0.2) 10/03/17 05:25 Sodium 141 mmol/l (132-148) 10/03/17 05:25 Potassium 4.0 MMOL/L (3.6-5.0) 10/03/17 05:25 Chloride 112 mmol/L (98-107) H 10/03/17 05:25 Carbon Dioxide 21 mmol/L (22-30) L 10/03/17 05:25 Anion Gap 12 (10-20) 10/03/17 05:25 BUN 6 mg/dl (7-17) L 10/03/17 05:25 Creatinine 0.8 mg/dl (0.7-1.2) 10/03/17 05:25 Est GFR ( Amer) > 60 10/03/17 05:25 Est GFR (Non-Af Amer) > 60 10/03/17 05:25 POC Glucose (mg/dL) 117 mg/dL (65-110) H 10/01/17 22:35 Random Glucose 85 mg/dL (65-105) 10/03/17 05:25 Calcium 8.3 mg/dL (8.4-10.2) L 10/03/17 05:25 Magnesium 2.1 MG/DL (1.6-2.3) 10/02/17 05:45 Total Bilirubin 0.6 mg/dl (0.2-1.3) 10/03/17 05:25 AST 20 U/L (14-36) 10/03/17 05:25 ALT 21 U/L (9-52) 10/03/17 05:25 Alkaline Phosphatase 76 U/L (38-126) 10/03/17 05:25 Total Protein 6.0 G/DL (6.3-8.2) L 10/03/17 05:25 Albumin 3.1 g/dL (3.5-5.0) L 10/03/17 05:25 Globulin 2.9 gm/dL (2.2-3.9) 10/03/17 05:25 Albumin/Globulin Ratio 1.1 (1.0-2.1) 10/03/17 05:25 Beta HCG, Quant < 2.39 mIU/mL 10/01/17 22:38 Urine Color Straw (YELLOW) 10/03/17 14:20 Urine Clarity Clear (Clear) 10/03/17 14:20 Urine pH 5.0 (5.0-8.0) 10/03/17 14:20 Ur Specific [place] 1.005 (1.003-1.030) 10/03/17 14:20 Urine Protein Negative mg/dL (NEGATIVE) 10/03/17 14:20 Urine Glucose (UA) Neg mg/dL (Normal) 10/03/17 14:20 Urine Ketones Negative mg/dL (NEGATIVE) 10/03/17 14:20 Urine Blood Negative (NEGATIVE) 10/03/17 14:20 Urine Nitrate Negative (NEGATIVE) 10/03/17 14:20 Urine Bilirubin Negative (NEGATIVE) 10/03/17 14:20 Urine Urobilinogen 0.2-1.0 mg/dL (0.2-1.0) 10/03/17 14:20 Ur Leukocyte Esterase Neg Patti/uL (Negative) 10/03/17 14:20 Urine Microscopic WBC 1 /hpf (0-5) 10/03/17 14:20 Ur Squamous Epith Cells 1 /hpf (0-5) 10/03/17 14:20 Salicylates < 1.0 mg/dl 10/01/17 22:38 Acetaminophen < 10.0 ug/ml (10.0-30.0) L 10/01/17 22:38 [place] 0.4 MMOL/L (0.6-1.2) L 10/02/17 02:45 Alcohol, Quantitative < 10 mg/dl (0-10) 10/01/17 22:38 - Hospital Course Hospital Course: ivf, seriel ekg, 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
--- NOTE | 2017-10-06 12:52 | CARD ---
APPROVED REPORT Date of service: 10/02/2017 EKG Measurement Heart [id number] <Conclusion> Sinus tachycardia Otherwise normal ECG
--- NOTE | 2017-10-06 12:58 | CARD ---
APPROVED REPORT Date of service: 10/02/2017 EKG Measurement Heart [id number] <Conclusion> Sinus tachycardia Otherwise normal ECG
--- NOTE | 2017-10-06 12:58 | CARD ---
APPROVED REPORT Date of service: 10/02/2017 EKG Measurement Heart [id number] <Conclusion> Sinus tachycardia Otherwise normal ECG
== END 2017-10-04 16:54 | DRG 918 ==
LOC: H.ER 21:51 → H.ERHOLD 23:19 → H.TEL 10-02 02:50
PROVIDERS: ADMIT Family Medicine; ATTEND Family Medicine
DX: T42.4X2A Poisoning by benzodiazepines, intentional self-harm, initial encounter (principal); Z90.710 Acquired absence of both cervix and uterus; Z91.5 Personal history of self-harm; Z98.51 Tubal ligation status; F41.9 Anxiety disorder, unspecified; F45.9 Somatoform disorder, unspecified; Z79.899 Other long term (current) drug therapy; R10.13 Epigastric pain; E03.9 Hypothyroidism, unspecified; F32.9 Major depressive disorder, single episode, unspecified; F42.9 Obsessive-compulsive disorder, unspecified; F43.10 Post-traumatic stress disorder, unspecified

== ENCOUNTER 2017-10-04 17:03 | Inpatient (IN) | payer BC ==
[2017-10-04 17:29] VITALS: BMI 22.4
[2017-10-04] MEDS ORDERED: DiphenhydrAMINE 50 mg/ml Inj IM PRN (17:33)
[2017-10-04] MEDS ORDERED: Alum-Mag Hydrox-Simethicone Susp (30 mL) PO PRN (17:33)
[2017-10-04] MEDS ORDERED: Magnesium Hydroxide Susp 30 ml UD PO PRN (17:33)
--- NOTE | 2017-10-04 19:34 | PCM.BM ---
Treatment Plan Problems - Problems identified on initial assessmt Problem 2 Date Initiated: 10/04/17 Time Initiated: 17:00 Assessment reference: NA Status: Active Treatment assets and liabiliti Patient Assests: educated, motivated, self-reliant, ADL independent, good support system, negotiates basic needs, financial stabiity Patient Liabilities: financial problems, relationship conflicts, medical problems - Milieu Protocol Maintain good personal hygiene: daily Encourage regular showers, daily Remind patient to perform daily oral care, daily Assist patient to perform ADL's Conduct patient checks and document Observation sheet: Q15 minutes Maintain personal safety: every shift Educate patient to report safety concerns to staff, every shift Monitor environment for contraband/sharps Medication safety: Monitor for expected outcome, potential side effects: daily, Assess barriers to learning: daily, Assess readiness for medication education: daily
[2017-10-04 22:55] LABS: SQUAMOUS EPITHIAL 10 /hpf (0-5); URINE BACTERIA FEW (<OCC); URINE BILIRUBIN NEGATIVE (NEGATIVE); URINE BLOOD SMALL (NEGATIVE); URINE CLARITY CLOUDY (Clear); URINE COLOR YELLOW (YELLOW); URINE GLUCOSE (UA) NEG (Normal); URINE LEUKOCYTE ESTERASE LARGE Leu/uL (Negative); URINE PROTEIN NEGATIVE (NEGATIVE); URINE UROBILINOGEN 0.2-1.0 mg/dL (0.2-1.0)
[2017-10-05 08:45] LABS: T4 5.05 ug/dl (5.5-11.0)
--- NOTE | 2017-10-05 10:45 | CP.PCM.HP ---
History of Present Illness - History of Present Illness History of Present Illness: pt admitted to [facility] for depression/seroquel od. is clam and cooperative at present. seen w/ rn at bedside. pt c/o perineal discomfort, blood on toilet tissue nad flank pain. no f/c, n/v/d. urine noted. was tx outpt for uti 2 wks ago w/ cipro. outpt c/s noted. Present on Admission - Present on Admission Any Indicators Present on Admission: No Review of Systems - Genitourinary Genitourinary: As Per HPI, Dysuria, Flank Pain - Psychiatric Psychiatric: As Per HPI, Depression, Suicidal Ideation Past Patient History - Past Medical History & Family History Past Medical History?: Yes - Past Social History Smoking Status: Never Smoked - CARDIAC Hx Cardiac Disorders: No - PULMONARY Hx Respiratory Disorders: No - NEUROLOGICAL Hx Neurological Disorder: No - HEENT Hx HEENT Problems: No - RENAL Hx Chronic Kidney Disease: No - ENDOCRINE/METABOLIC Hx Endocrine Disorders: Yes Hx Hypothyroidism: Yes - HEMATOLOGICAL/ONCOLOGICAL Hx Blood Disorders: No - INTEGUMENTARY Hx Dermatological Problems: No - MUSCULOSKELETAL/RHEUMATOLOGICAL Hx Musculoskeletal Disorders: No Hx Falls: No - GASTROINTESTINAL Hx Gastrointestinal Disorders: No - GENITOURINARY/GYNECOLOGICAL Hx Genitourinary Disorders: No Other/Comment: total hyst - PSYCHIATRIC Hx Depression: Yes Hx Substance Use: No - SURGICAL HISTORY Hx Surgeries: Yes Hx Hysterectomy: Yes Hx Tubal Ligation: Yes - ANESTHESIA Hx Anesthesia: Yes Hx Anesthesia Reactions: No Hx Malignant Hyperthermia: No Meds Allergies/Adverse Reactions: Allergies Allergy/AdvReac Type Severity Reaction Status Date / Time No Known Allergies Allergy Verified 11/16/14 12:55 Physical Exam - Constitutional Appears: Well, Non-toxic, No Acute Distress - Head Exam Head Exam: ATRAUMATIC, NORMAL INSPECTION, NORMOCEPHALIC - Eye Exam Eye Exam: EOMI, Normal appearance, PERRL Pupil Exam: NORMAL ACCOMODATION, PERRL - ENT Exam ENT Exam: Mucous Membranes Moist, Normal Exam - Neck Exam Neck exam: Positive for: Normal Inspection - Respiratory Exam Respiratory Exam: Clear to Auscultation Bilateral, NORMAL BREATHING PATTERN - Cardiovascular Exam Cardiovascular Exam: REGULAR RHYTHM, RRR, +S1, +S2 - GI/Abdominal Exam GI & Abdominal Exam: Normal Bowel Sounds, Soft. absent: Tenderness - Extremities Exam Extremities exam: Positive for: full ROM, normal capillary refill, normal inspection, pedal pulses present - Back Exam Back exam: FULL ROM, NORMAL INSPECTION - Neurological Exam Neurological exam: Alert, CN II-XII Intact, Normal Gait, Oriented x3, Reflexes Normal - Psychiatric Exam Psychiatric exam: Normal Affect, Normal Mood - Skin Skin Exam: Dry, Intact, Normal Color, Warm Results - Vital Signs Recent Vital Signs: Last Vital Signs Temp 96.6 F L 10/05/17 09:00 Pulse 85 10/05/17 09:00 Resp 18 10/05/17 09:00 BP 109/74 10/05/17 09:00 Pulse Ox - Labs Labs: Laboratory Results - last 24 hr 10/04/17 10/05/17 21:36 07:30 Triglycerides 76 Cholesterol 156 LDL Cholesterol Direct 79 HDL Cholesterol 45 Thyroxine (T4) 5.05 L TSH 3rd Generation 3.00 Urine Color Yellow Urine Clarity Cloudy Urine pH 6.0 Ur Specific [place] 1.010 Urine Protein Negative Urine Glucose (UA) Neg Urine Ketones Negative Urine Blood Small Urine Nitrate Negative Urine Bilirubin Negative Urine Urobilinogen 0.2-1.0 Ur Leukocyte Esterase Large Urine RBC (Auto) 3 Urine Microscopic WBC 17 H Ur Squamous Epith Cells 10 H Urine Bacteria Few H Assessment & Plan (1) UTI (urinary tract infection) Assessment and Plan: macrobid urine c/s hydration as pt w/ pelvic discomfort if no relief will get house obgyn to see pt ua noted Status: Acute (2) Antipsychotic overdose Assessment and Plan: no further medical se noted. psych meds interventions and therapies Status: Acute (3) DVT prophylaxis Assessment and Plan: ambulation Status: Acute (4) Depression Assessment and Plan: psych meds interventions and therapies Status: Acute Decision To Admit - Pt Status Changed To: Hospital Disposition Of: Inpatient - Admit Certification Admit to Inpatient:: After my assessment, the patient will require hospitalization for at least two midnights. This is because of the severity of symptoms shown, intensity of services needed, and/or the medical risk in this patient being treated as an outpatient. - . Bed Request Type: Adult Psychiatry Admitting Physician: Gricelda Valentin
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
--- NOTE | 2017-10-06 12:03 | PCM.PYCHPN ---
Psychiatric Progress Note - Psychiatric Progress Note Patient seen today, length of contact: pt seen and evaluated Patient Chief Complaint: pt has remained depressed and unable to sleep and still with poor insight about her suicidal attempt. and need further stabilization.pt has some denial abouther depression ,minimising her symptoms and wanting to be d/c .pt remains at high risk for suicide because of still having suicidal thoughts and instability of mood and remains unpredictable and need further stabilization. Problems Identified/Issues Discussed: major depression ,severe Medication Change: Yes (increase remeron to 30 mg hs) Mental Status Examination - Cognitive Function Orientation: Person, Place, Situation, Time Attention: Poor Concentration: Poor Association: WNL Fund of Knowledge: WNL - Mood Mood: Depressed, Anxious - Affect Affect: Constricted - Formal Thought Process Formal Thought Process: Paranoia, Flight of ideas - Suicidal Ideation Suicidal Ideation: Yes - Homicidal Ideation Homicidal Ideation: No Goal/Treatment Plan - Goal/Treatment Plan Progress Toward Problem(s) and Goals/Treatment Plan: pt has agreed to increase remeron to 30 mg hs ,increase lithium to 600 mg hs for depression and insomnia and trazodone to 100 mg hs . . will engage pt in therapy and groups. As pt has put in 48 hour letter and does not want to retract it [place] [facility] [place]itt[place]..
--- NOTE | 2017-10-07 08:44 | CP.PCM.PN ---
Subjective - Date & Time of Evaluation Date of Evaluation: 10/07/17 Time of Evaluation: 08:43 - Subjective Subjective: pt doing well. no si/hi. signed 48h notice and plans on leaving today. still w/ diffuse pelvic discomfort and dyspepsia. no f/c, n/v/d. urine c/s noted. Objective - Vital Signs/Intake and Output Vital Signs (last 24 hours): Temp Pulse Resp BP Pulse Ox 97.7 F 94 H 17 117/68 10/06/17 16:44 10/06/17 16:44 10/06/17 16:44 10/06/17 16:44 - Medications Medications: Current Medications Acetaminophen (Tylenol 325mg Tab) 650 mg PO Q4 PRN PRN Reason: Other-PAIN Acyclovir (Zovirax) 800 mg PO TID VERONICA PRN Reason: Protocol Last Admin: 10/06/17 19:16 Dose: 800 mg Al Hydrox/Mg Hydrox/Simethicone (Maalox Plus 30 Ml) 30 ml PO Q4 PRN PRN Reason: Dyspepsia Diphenhydramine HCl (Benadryl) 50 mg IM Q6 PRN PRN Reason: Extrapyramidal S/S Unable PO Diphenhydramine HCl (Benadryl) 50 mg PO Q6 PRN PRN Reason: Dystonic reaction/EPS Diphenhydramine HCl (Benadryl) 50 mg PO HS PRN PRN Reason: Sleep Haloperidol (Haldol) 5 mg PO Q4 PRN PRN Reason: Agitation Haloperidol Lactate (Haldol) 5 mg IM Q4 PRN PRN Reason: Agitation, Unable to Take PO Timblin Carbonate (Timblin Carbonate 300mg) 600 mg PO HS [facility] Last Admin: 10/06/17 21:41 Dose: 600 mg Lorazepam (Ativan) 2 mg IM Q4 PRN PRN Reason: Anxiety/Agitation,Unable PO Lorazepam (Ativan) 1 mg PO Q8 PRN PRN Reason: Anxiety Magnesium Hydroxide (Milk Of Magnesia) 30 ml PO HS PRN PRN Reason: Constipation Mirtazapine (Remeron) 30 mg PO HS [facility] Last Admin: 10/06/17 21:41 Dose: 30 mg Nitrofurantoin Macrocrystals (Macrobid) 100 mg PO Q12 VERONICA PRN Reason: Protocol Last Admin: 10/06/17 21:41 Dose: 100 mg Topiramate (Topamax) 25 mg PO HS VERONICA Last Admin: 10/06/17 21:41 Dose: 25 mg Trazodone HCl (Desyrel) 100 mg PO HS PRN PRN Reason: Insomnia - Constitutional Appears: Well, Non-toxic, No Acute Distress - Head Exam Head Exam: ATRAUMATIC, NORMAL INSPECTION, NORMOCEPHALIC - Eye Exam Eye Exam: EOMI, Normal appearance, PERRL Pupil Exam: NORMAL ACCOMODATION, PERRL - ENT Exam ENT Exam: Mucous Membranes Moist, Normal Exam - Neck Exam Neck Exam: Full ROM, Normal Inspection. absent: Lymphadenopathy - Respiratory Exam Respiratory Exam: Clear to Ausculation Bilateral, NORMAL BREATHING PATTERN - Cardiovascular Exam Cardiovascular Exam: REGULAR RHYTHM, RRR, +S1, +S2. absent: Murmur - GI/Abdominal Exam GI & Abdominal Exam: Soft, Normal Bowel Sounds. absent: Tenderness - Extremities Exam Extremities Exam: Full ROM, Normal Capillary Refill, Normal Inspection. absent : Joint Swelling, Pedal Edema - Back Exam Back Exam: NORMAL INSPECTION - Neurological Exam Neurological Exam: Alert, Awake, CN II-XII Intact, Normal Gait, Oriented x3 - Psychiatric Exam Psychiatric exam: Normal Affect, Normal Mood - Skin Skin Exam: Dry, Intact, Normal Color, Warm Assessment and Plan (1) UTI (urinary tract infection) Status: Acute (2) Antipsychotic overdose Status: Acute (3) DVT prophylaxis Status: Acute (4) Depression Status: Acute - Assessment and Plan (Free Text) Assessment: (1) UTI (urinary tract infection) Assessment and Plan: macrobid urine c/s-noted hydration pt being dc today will have pt f/u w/ pmd in am and see obgyn outpt. ua noted Status: Acute (2) Antipsychotic overdose Assessment and Plan: no further medical se noted. psych meds interventions and therapies Status: Acute (3) DVT prophylaxis Assessment and Plan: ambulation Status: Acute (4) Depression Assessment and Plan: psych meds interventions and therapies Status: Acute [id number], maalox
[2017-10-07 10:25] VITALS: BP 102/80; PULSE 100; RESP 20; TEMP 98.2
--- NOTE | 2017-10-07 11:46 | PCM.PYCHPN ---
Psychiatric Progress Note - Psychiatric Progress Note Patient seen today, length of contact: pt seen and evaluated Patient Chief Complaint: pt has been feeling less depresed and less anxious but still with poor insight regarding her depressed and wants to sign out against medical advice .pt was referred to [facility] [place] for committment and has been seen by screener and found not committable .I explained to the patient the risks of d/c AMA including increase in suicidal risk and increase in depresssion and benefits of staying longer in hospital with stabilization of mood but she still wants to be d/c against medical advice and agreed to be liable for all adverse consequences medically and psychiatrically of signing heself out. Problems Identified/Issues Discussed: major depression ,severe Medication Change: No Mental Status Examination - Cognitive Function Orientation: Person, Place, Situation, Time Attention: WNL Concentration: WNL Association: WNL Fund of Knowledge: WNL - Mood Mood: Depressed, Anxious - Affect Affect: Broad - Formal Thought Process Formal Thought Process: No Impairment, Flight of ideas - Suicidal Ideation Suicidal Ideation: No - Homicidal Ideation Homicidal Ideation: No Goal/Treatment Plan - Goal/Treatment Plan Progress Toward Problem(s) and Goals/Treatment Plan: pt is d/c to home against medical advise .pt denies suicidal and homicidal ideation and able to contract for safety.
== END 2017-10-07 12:29 | disposition left against medical advice (07) | DRG 885 ==
LOC: H.PSYCH 18:14
PROVIDERS: ADMIT Psychiatry & Neurology Psychiatry; ATTEND Psychiatry & Neurology Psychiatry
PROC: GZHZZZZ Group Psychotherapy (ICD-10-PCS; principal; 2017-10-04)
DX: F32.2 Major depressive disorder, single episode, severe without psychotic features (principal); N39.0 Urinary tract infection, site not specified; R45.851 Suicidal ideations; E03.9 Hypothyroidism, unspecified; F43.10 Post-traumatic stress disorder, unspecified; G47.00 Insomnia, unspecified; R10.13 Epigastric pain; G43.909 Migraine, unspecified, not intractable, without status migrainosus; F42.9 Obsessive-compulsive disorder, unspecified

== ENCOUNTER 2017-11-15 23:20 | Emergency (ER) | payer BC ==
[2017-11-15 23:36] VITALS: BMI 22.6
[2017-11-15 23:37] VITALS: O2SAT 99
[2017-11-15] MEDS ORDERED: Sodium Chloride 0.9% 1,000 ML IV STA (23:48)
--- NOTE | 2017-11-15 23:53 | ED PDOC ---
HPI: Headache Time Seen by Provider: 11/15/17 23:51 Chief Complaint (Nursing): Headache Chief Complaint (Provider): headache History Per: Patient (41 y/o female here with acute headache that occurred 15 min prior to ED arrival while sleeping. States she has h/o headache but are dissimilar to today's headache. Denies any vomiting/fevers/chills. Has had antibiotics recently for sinusitis. ) Against Medical Advice - AMA Patient Left Against Medical Advice: The patient declines lumbar puncture procedure. This action is against my medical advice. This decision was made with informed refusal. The patient was told lumbar puncture was recommended. Explanation of the reasons why were discussed. The risks of leaving were explained to the patient and include, but are not limited to, worsening of known or currently unknown conditions, permanent disability and from undiagnosed or untreated conditions. The patient has the capacity to make this informed decision and understands my explanation of the current medical problem and risks of leaving. The patient voluntarily accepts these risks and signed an AMA form documenting our conversation. The patient was given the opportunity to ask questions and reconsider. The patient was encouraged to return to the Emergency Department at any time for further care. 11/16/17 02:45 Past Medical History Reviewed: Historical Data, Nursing Documentation, Vital Signs Vital Signs: Last Vital Signs Temp 97.7 F 11/15/17 23:36 Pulse 68 11/15/17 23:36 Resp 18 11/15/17 23:36 BP 154/86 H 11/15/17 23:36 Pulse Ox 99 11/15/17 23:36 - Medical History PMH: Anxiety, Depression, Hypothyroidism, Post Traumatic Stress Disorder Denies: Chronic Kidney Disease - Family History Family History: States: Unknown Family Hx - Immunization History Hx Tetanus Toxoid Vaccination: No (not sure of last tetanus) - Home Medications Home Medications: Ambulatory Orders Medication Instructions Recorded Cholecalciferol (Vitamin D3) 4,000 unit PO DAILY 11/16/17 [Vitamin D3] DiphenhydrAMINE [Benadryl] 25 mg PO DAILY PRN 11/16/17 Fluconazole [Fluconazole] 150 mg PO DAILY 11/16/17 Levocetirizine Dihydrochloride 5 mg PO DAILY 11/16/17 [Xyzal] Mv-Min/Folic/Vit K/Lycop/Coq10 1 tab PO DAILY 08/26/18 [Daily Multivitamin Capsule] Tranylcypromine Sulfate 20 mg PO DAILY 11/16/17 - Allergies Allergies/Adverse Reactions: Allergies Allergy/AdvReac Type Severity Reaction Status Date / Time No Known Allergies Allergy Verified 11/15/17 23:35 Review of Systems ROS Statement: Except As Marked, All Systems Reviewed And Found Negative Physical Exam - Reviewed Nursing Documentation Reviewed: Yes Vital Signs Reviewed: Yes - Physical Exam Appears: Positive for: Well, Non-toxic, No Acute Distress Head Exam: Positive for: ATRAUMATIC, NORMAL INSPECTION, NORMOCEPHALIC Skin: Positive for: Normal Color, Warm, DRY Eye Exam: Positive for: EOMI, Normal appearance, PERRL ENT: Positive for: Normal ENT Inspection Neck: Positive for: Normal, Painless ROM Cardiovascular/Chest: Positive for: Regular Rate, Rhythm Respiratory: Positive for: CNT, Normal Breath Sounds Gastrointestinal/Abdominal: Positive for: Normal Exam, Soft Back: Positive for: Normal Inspection Extremity: Positive for: Normal ROM Neurologic/Psych: Positive for: Alert, Oriented - Laboratory Results Result Diagrams: 11/15/17 23:59 11/15/17 23:59 Urine POC: Negative - ECG O2 Sat by Pulse Oximetry: 99 - Progress ED Course And Treament: HEAD CT: FINDINGS: Brain: Unremarkable. No hemorrhage. No significant white matter disease. No edema. Ventricles: Unremarkable. No ventriculomegaly. Bones/joints: Unremarkable. No acute fracture. Soft tissues: Unremarkable. Sinuses: Opacification within the right maxillary sinus. Mastoid air cells: Unremarkable as visualized. No mastoid effusion. IMPRESSION: No acute intracranial pathology. Sinus disease as above. Thank you for allowing us to participate in the care of your patient. Dictated and Authenticated by: Bridgett Butts MD 11/16/2017 12:17 AM Eastern Time ([place] & [place]) REGLAN 10 MG IV X 1 DOSE NS 1 LITER WIDE OPEN ATIVAN 0.5MG IV X 1 DOSE PATIENT IMPROVED. D/W HER LUMBAR PUNCTURE FOR EVALUATION OF SUBARACHNOID HEMORRHAGE. RISKS AND BENEFITS DISCUSSED WITH HER. PATIENT DECLINES LUMBAR PUNCTURE AT THIS TIME. Disposition - Clinical Impression Clinical Impression: Acute headache - Patient ED Disposition Is Patient to be Admitted: No - Disposition Disposition: Against Medical Advice Disposition Time: 02:45 Condition: FAIR Instructions: Acute Headache (ED)
[2017-11-16 00:10] LABS: BASO # 0.1 K/uL (0.0-0.2); BASO % 0.8 % (0.0-2.0); EOS # 0.3 K/uL (0.0-0.7); EOS % 2.4 % (0.0-4.0); HEMOGLOBIN 13.7 g/dL (12.0-16.0); LYMPH # 3.9 K/uL (1.0-4.3); LYMPH % 34.3 % (20.0-40.0); MEAN CELL VOLUME 97.2 fl (81.0-99.0); MEAN CORPUSCULAR HEMOGLOBIN 32.4 pg (27.0-31.0); MEAN CORPUSCULAR HGB CONC 33.3 g/dL (33.0-37.0); MEAN PLATELET VOLUME 8.8 fl (7.2-11.7); MONO % 8.8 % (0.0-10.0); NEUT # 6.1 K/uL (1.8-7.0); NEUT % 53.7 % (50.0-75.0); RBC 4.22 Mil/uL (3.80-5.20); RED CELL DISTRIBUTION WIDTH 12.4 % (11.5-14.5); WHITE BLOOD COUNT 11.4 K/uL (4.8-10.8)
[2017-11-16 00:31] LABS: ALB/GLOB RATIO 1.4 (1.0-2.1); ALBUMIN 4.6 g/dL (3.5-5.0); ALT/SGPT 27 U/L (9-52); AST/SGOT 25 U/L (14-36); BLOOD UREA NITROGEN 17 mg/dl (7-17); CALCIUM 9.7 mg/dL (8.4-10.2); GFR NON-AFRICAN AMERICAN > 60
[2017-11-16 00:50] LABS: PARTIAL THROMBOPLASTIN TIME 32.7 Seconds (25.6-37.1); PROTHROMBIN TIME 10.5 Seconds (9.8-13.1)
[2017-11-16] MEDS ORDERED: Naproxen 500 MG TAB PO STA (02:22)
[2017-11-16] MEDS ORDERED: Naproxen 500 MG TAB PO ONE (02:58)
[2017-11-16 05:17] VITALS: BP 118/82; PULSE 71; RESP 16; TEMP 98.2
--- NOTE | 2017-11-16 09:13 | CT ---
Date of service: 11/15/2017 PROCEDURE: CT HEAD WITHOUT CONTRAST. HISTORY: headache r/o subarachnoid hemorrhage COMPARISON: None available. TECHNIQUE: Axial computed tomography images were obtained through the head/brain without intravenous contrast. Radiation dose: Total exam DLP = 810.77 MGy-cm. This CT exam was performed using one or more of the following dose reduction techniques: Automated exposure control, adjustment of the mA and/or kV according to patient size, and/or use of iterative reconstruction technique. FINDINGS: HEMORRHAGE: No intracranial hemorrhage. BRAIN: No mass effect or edema. No atrophy or chronic microvascular ischemic changes. VENTRICLES: Unremarkable. No hydrocephalus. CALVARIUM: Unremarkable. PARANASAL SINUSES: This opacification superior aspect maxillary sinus. MASTOID AIR CELLS: . No significant inflammatory changes. OTHER FINDINGS: None. IMPRESSION: No acute intracranial hemorrhage
== END 2017-11-16 02:40 | disposition left against medical advice (07) ==
LOC: H.ER 23:20
DX: R51 Headache (principal); Z86.59 Personal history of other mental and behavioral disorders; E03.9 Hypothyroidism, unspecified; I60.9 Nontraumatic subarachnoid hemorrhage, unspecified; F43.10 Post-traumatic stress disorder, unspecified; J32.9 Chronic sinusitis, unspecified
CPT/HCPCS: 70450; 80053; 85025; 85610; 85730; 96361; 96374; 96375; 99285; J2060; J2765; J7030

== ENCOUNTER 2017-11-19 02:39 | Emergency (ER) | payer BC ==
[2017-11-19 02:51] VITALS: BMI 22.8
[2017-11-19] MEDS ORDERED: DiphenhydrAMINE 50 mg/ml Inj IV STA (02:55)
[2017-11-19] MEDS ORDERED: Sodium Chloride 0.9% 1,000 ML IV STA (02:55)
[2017-11-19] MEDS ORDERED: DiphenhydrAMINE 50 mg/ml Inj ONE (03:04)
--- NOTE | 2017-11-19 03:13 | ED PDOC ---
HPI: Headache Time Seen by Provider: 11/19/17 02:51 Chief Complaint (Nursing): Headache Chief Complaint (Provider): Headache History Per: Patient History/Exam Limitations: no limitations Onset/Duration Of Symptoms: Mins (x20) Current Symptoms Are (Timing): Still Present Quality: Pressure Associated Symptoms: Nausea. denies: Photophobia, Vomiting Additional Complaint(s): 41 y/o female with a PMHx of Depression and Migraines presents to the ED for evaluation of a headache, onset 20 minutes prior to arrival. Patient reports of having recently started taking tranylcypromine for Depression for approximately 2 weeks. Patient was seen and evaluated here on Friday for the same symptoms where she had a full workup including a Head CT that improved markedly. Patient signed out AMA due to improvement of symptoms. Patient reports of continuing to take medications and suspects she may have developed a reaction to the medication. Patient reports headache iss located in the occipital region and is described as pulsating. Patient states headache is associated with nausea. Denies vomiting PMD: Gricelda Valentin Past Medical History Reviewed: Historical Data, Nursing Documentation, Vital Signs Vital Signs: Last Vital Signs Temp 97 F L 11/19/17 02:52 Pulse 58 L 11/19/17 02:52 Resp 22 11/19/17 02:52 BP 166/78 H 11/19/17 02:52 Pulse Ox 98 11/19/17 02:52 - Medical History PMH: Anxiety, Depression, Hypothyroidism, Migraine, Post Traumatic Stress Disorder Denies: Chronic Kidney Disease - Surgical History Surgical History: No Surg Hx - Family History Family History: States: Unknown Family Hx - Immunization History Hx Tetanus Toxoid Vaccination: No (not sure of last tetanus) - Home Medications Home Medications: Ambulatory Orders Medication Instructions Recorded Cholecalciferol (Vitamin D3) 4,000 unit PO DAILY 11/16/17 [Vitamin D3] DiphenhydrAMINE [Benadryl] 25 mg PO DAILY PRN 11/16/17 Fluconazole [Fluconazole] 150 mg PO DAILY 11/16/17 Levocetirizine Dihydrochloride 5 mg PO DAILY 11/16/17 [Xyzal] Mv-Min/Folic/Vit K/Lycop/Coq10 1 tab PO DAILY 11/16/17 [Daily Multivitamin Capsule] Tranylcypromine Sulfate 20 mg PO DAILY 11/16/17 - Allergies Allergies/Adverse Reactions: Allergies Allergy/AdvReac Type Severity Reaction Status Date / Time No Known Allergies Allergy Verified 11/19/17 02:51 Review of Systems ROS Statement: Except As Marked, All Systems Reviewed And Found Negative Gastrointestinal: Positive for: Nausea. Negative for: Vomiting Neurological: Positive for: Headache Physical Exam - Reviewed Nursing Documentation Reviewed: Yes Vital Signs Reviewed: Yes - Physical Exam Appears: Positive for: Uncomfortable Head Exam: Positive for: ATRAUMATIC, NORMAL INSPECTION, NORMOCEPHALIC Skin: Positive for: Normal Color, Warm, Dry Eye Exam: Positive for: Normal appearance, EOMI, PERRL Neck: Positive for: Normal, Painless ROM, Supple Cardiovascular/Chest: Positive for: Regular Rate, Rhythm. Negative for: Murmur Respiratory: Positive for: Normal Breath Sounds. Negative for: Respiratory Distress Gastrointestinal/Abdominal: Positive for: Normal Exam, Soft. Negative for: Tenderness Extremity: Positive for: Normal ROM. Negative for: Deformity Neurologic/Psych: Positive for: Alert, Oriented. Negative for: Motor/Sensory Deficits, Other (Photophobia) - Laboratory Results Result Diagrams: 11/19/17 03:15 11/19/17 03:15 - ECG O2 Sat by Pulse Oximetry: 98 (RA) Pulse Ox Interpretation: Normal Medical Decision Making Medical Decision Making: Time: 030 Impression: 41 y/o female with an acute headache Plan: -- CMP -- Urine Drug Screen -- Lact Acid, Plasma -- ED Urine -- ED Urine Dipstick -- CBC with differentials -- PTT -- Prothrombin Time -- Benadryl 50 mg IB -- Sodium Chloride IV 1000 mls/hr -- Reglan 10 mg IVPB -- Blood Culture -- Heplock Insertion -- Urinalysis Time: 0507 CT HEAD RESULTS FINDINGS: RIGHT: Right internal carotid artery: Unremarkable. Intracranial segment is patent with no significant stenosis. No aneurysm. Right anterior cerebral artery: Unremarkable. No occlusion or significant stenosis. No aneurysm. Right middle cerebral artery: Unremarkable. No occlusion or significant stenosis. No aneurysm. Right posterior cerebral artery: Unremarkable. No occlusion or significant stenosis. No aneurysm. Right vertebral artery: Unremarkable. No occlusion or significant stenosis. No aneurysm. LEFT: Left internal carotid artery: Unremarkable. Intracranial segment is patent with no significant stenosis. No aneurysm. Left anterior cerebral artery: Unremarkable. No occlusion or significant stenosis. No aneurysm. Left middle cerebral artery: Unremarkable. No occlusion or significant stenosis. No aneurysm. Left posterior cerebral artery: Unremarkable. No occlusion or significant stenosis. No aneurysm. Left vertebral artery: Unremarkable. No occlusion or significant stenosis. No aneurysm. BILATERAL: Basilar artery: Unremarkable. No occlusion or significant stenosis. No aneurysm. Opacified right maxillary sinus IMPRESSION: No hemodynamically significant stenosis or intracranial aneurysm Right maxillary sinusitis suspected Thank you for allowing us to participate in the care of your patient. Dictated and Authenticated by: Jose Miguel Anderson MD 11/19/2017 5:07 AM Eastern Time ([place] & [place] Time: 609 -- On re-evaluation, patient markedly improved in symptoms. Patient is stable for discharge with a diagnosis of a headache. Patient was instructed to see Neurologist and Psychiatrist for further guidance as to taking Maoi. In light of symptoms, patient is having adverse reactions to medications causing re- current headache which was explained to her. Scribe Attestation: Documented by Vance Walker acting as a scribe for Mariano Horton MD. Provider Scribe Attestation: All medical record entries made by the Scribe were at my direction and personally dictated by me. I have reviewed the chart and agree that the record accurately reflects my personal performance of the history, physical exam, medical decision making, and the department course for this patient. I have also personally directed, reviewed, and agree with the discharge instructions and disposition. Disposition - Clinical Impression Clinical Impression: Headache - Patient ED Disposition Is Patient to be Admitted: No Counseled Patient/Family Regarding: Studies Performed, Diagnosis, Need For Followup - Disposition Referrals: Gricelda Valentin MD [Primary Care Provider] - Disposition: Routine/Home Disposition Time: 06:10 Condition: IMPROVED Instructions: Headache, Adult Forms: Site Tour ([employer])
[2017-11-19 03:27] LABS: BASO % 0.4 % (0.0-2.0); EOS # 0.2 K/uL (0.0-0.7); EOS % 2.2 % (0.0-4.0); HEMOGLOBIN 13.4 g/dL (12.0-16.0); LYMPH # 4.4 K/uL (1.0-4.3); LYMPH % 38.5 % (20.0-40.0); MEAN CELL VOLUME 97.6 fl (81.0-99.0); MEAN CORPUSCULAR HEMOGLOBIN 32.7 pg (27.0-31.0); MEAN CORPUSCULAR HGB CONC 33.5 g/dL (33.0-37.0); MEAN PLATELET VOLUME 8.9 fl (7.2-11.7); MONO # 1.1 K/uL (0.0-0.8); MONO % 10.1 % (0.0-10.0); NEUT # 5.6 K/uL (1.8-7.0); NEUT % 48.8 % (50.0-75.0); NRBC % 0.1 % (0.0-0.0); RBC 4.09 Mil/uL (3.80-5.20); RED CELL DISTRIBUTION WIDTH 12.6 % (11.5-14.5); WHITE BLOOD COUNT 11.4 K/uL (4.8-10.8)
[2017-11-19 03:49] LABS: SQUAMOUS EPITHIAL 6 /hpf (0-5); URINE BILIRUBIN NEGATIVE (NEGATIVE); URINE BLOOD NEGATIVE (NEGATIVE); URINE CALCIUM OXALATE CRYSTALS MOD /hpf (<OCC); URINE CLARITY CLOUDY (Clear); URINE COLOR YELLOW (YELLOW); URINE GLUCOSE (UA) NEG (Normal); URINE HYALINE CAST 0-2 /hpf (0-2); URINE LEUKOCYTE ESTERASE TRACE Leu/uL (Negative); URINE PROTEIN NEGATIVE (NEGATIVE); URINE UROBILINOGEN 0.2-1.0 mg/dL (0.2-1.0)
[2017-11-19 03:50] LABS: ALB/GLOB RATIO 1.1 (1.0-2.1); ALBUMIN 4.1 g/dL (3.5-5.0); ALT/SGPT 28 U/L (9-52); AST/SGOT 26 U/L (14-36); BARBITURATES, UR NEGATIVE (NEGATIVE); BENZODIAZEPINES, UR NEGATIVE (NEGATIVE); BLOOD UREA NITROGEN 23 mg/dl (7-17); CALCIUM 9.1 mg/dL (8.4-10.2); GFR NON-AFRICAN AMERICAN > 60; OPIATES, UR NEGATIVE (NEGATIVE); PHENCYCLIDINE, UR NEGATIVE (NEGATIVE)
[2017-11-19 03:54] LABS: PARTIAL THROMBOPLASTIN TIME 31.1 Seconds (25.6-37.1)
[2017-11-19] MEDS ORDERED: Sodium Chloride 0.9% 50 ML IV ONE (04:15)
[2017-11-19] MEDS ORDERED: Iodixanol 320 MG/ML 100 ML BOTTLE IV ONE (04:15)
[2017-11-19 05:54] VITALS: BP 151/88; PULSE 68; RESP 17; TEMP 97.9
[2017-11-19 06:13] VITALS: O2SAT 98
--- NOTE | 2017-11-20 13:25 | CT ---
Date of service: 11/19/2017 PROCEDURE: CT Angiography of the Brain. HISTORY: headache COMPARISON: None available. TECHNIQUE: CT angiography of the intracranial arteries was performed. Coronal and sagittal maximum intensity projection reformated images were generated. This CT exam was performed using one or more of the following dose reduction techniques: Automated exposure control, adjustment of the mA and/or kV according to patient size, and/or use of iterative reconstruction technique. FINDINGS: INTERNAL CEREBRAL ARTERIES: Unremarkable. The skull base, petrous, cavernous and supraclinoid segments are bilaterally widely patent. ANTERIOR CEREBRAL ARTERIES: Unremarkable. A1 and A2 segments are widely patent. Smaller distal branches unremarkable, as visualized. MIDDLE CEREBRAL ARTERIES: Unremarkable. M1 and M2 segments are widely patent. Perisylvian branches grossly symmetric. POSTERIOR CIRCULATION: Basilar Artery: Unremarkable. Distal Vertebral Arteries: Unremarkable. Posterior Cerebral Arteries: Unremarkable. Posterior Inferior Cerebellar Arteries: Unremarkable. ANEURYSM/ VASCULAR MALFORMATIONS: None. OTHER FINDINGS: There is near complete opacification of the right maxillary sinus. There is mild mucosal thickening in the left maxillary sinus. IMPRESSION: Normal CT Angiography of the brain. Acute and/or chronic right maxillary sinusitis. A preliminary report was provided by [facility] services.
== END 2017-11-19 05:54 | disposition home or self-care (01) ==
LOC: H.ER 02:39
DX: R51 Headache (principal); Z86.59 Personal history of other mental and behavioral disorders; E03.9 Hypothyroidism, unspecified; F43.10 Post-traumatic stress disorder, unspecified
CPT/HCPCS: 70496; 80053; 81003; 81025; 83605; 85025; 85610; 85730; 87040; 96374; 99285; G0480; J2765; J7030; Q9967